=== PATIENT | male | born 1955 | race Caucasian/White ===

== ENCOUNTER 2017-08-26 09:24 | Emergency (ER) | payer OTHER ==
[~2017-08-26] VITALS: Ht 406.4 cm; Wt 140.6 kg
[~2017-08-26 09:24] MED LIST: ASACOL400 MG; ASACOL400 MG PO; ASPIRIN81 M1 PO; AZASAN50 MG PO; CIPRO500 MG/5 M PO; FLAGYL500 MG; FLEXERIL10 MG PO; HUMIRA40 MG/0.1 SC; LISINOPRIL40 MG PO; MOTRIN800 MG PO; NAPROXEN ER500 MG PO; NEXIUM40 MG PO; TENORMIN50 MG PO; TYLENOL ARTHRI650 MG PO; VICODIN 5/500 505 MG PO; VICODIN 500 MG-1 TAB PO
[2017-08-26] MEDS ORDERED: SULFAZINE500 MG PO (09:47)
== END 2017-08-26 12:27 | disposition home or self-care (01) ==
LOC: ED 09:24
DX: S80.11XA Contusion of right lower leg, initial encounter (principal); M25.551 Pain in right hip; Z88.0 Allergy status to penicillin; Z88.2 Allergy status to sulfonamides; Z79.82 Long term (current) use of aspirin; Z79.899 Other long term (current) drug therapy; W01.0XXA Fall on same level from slipping, tripping and stumbling without subsequent striking against object, initial encounter; Y93.89 Activity, other specified; Y92.812 Truck as the place of occurrence of the external cause; Y99.8 Other external cause status

== ENCOUNTER 2022-01-18 01:26 | Emergency (ER) | payer BC ==
[~2022-01-18] VITALS: Ht 167.6 cm; Wt 95.3 kg
[~2022-01-18 01:26] MED LIST changes: +SULFAZINE500 MG PO
[2022-01-18 02:12] LABS: BASO # 0.1 10*3/uL (0.0-0.1); BASO % 0.6 % (0.0-1.0); EOS # 0.8 10*3/uL (0.0-0.4); EOS % 6.4 % (1.0-4.0); HEMATOCRIT 40.5 % (42.0-52.0); LYMPH # 1.7 10*3/uL (1.3-4.4); LYMPH % 13.6 % (27.0-41.0); MEAN CELL VOLUME 93.1 fl (80.0-94.0); MEAN CORPUSCULAR HGB 29.2 pg (27.0-31.0); MEAN CORPUSCULAR HGB CONC 31.4 g/dl (33.0-37.0); MEAN PLATELET VOLUME 9.6 fl (9.6-12.3); MONO # 1.2 10*3/uL (0.1-1.0); MONO % 9.9 % (3.0-9.0); NEUT # 8.4 10*3/uL (2.3-7.9); NEUT % 68.9 % (47.0-73.0); PLATELET COUNT AUTOMATED 362 10*3/uL (130-400); RED BLOOD COUNT 4.35 10*6/uL (4.50-5.90); RED CELL DISTRI WIDTH 15.3 % (0-14.5); WHITE BLOOD COUNT 12.2 10*3/uL (4.8-10.8)
[2022-01-18 02:31] LABS: ALKALINE PHOSPHATASE 54 U/L (45-117); BUN 20 mg/dl (7-24); CHLORIDE 105 mmol/L (98-107); LIPASE 349 U/L (73-393); POTASSIUM 4.1 mmol/L (3.5-5.1); SGOT/AST 19 IU/L (3-35); SGPT/ALT 25 U/L (12-78); SODIUM 138 mmol/L (136-145); TOTAL PROTEIN 7.3 gm/dL (6.4-8.2)
[2022-01-18] MEDS ORDERED: FLOMAX0.4 MG PO (06:52)
[2022-01-18] MEDS ORDERED: NAPROSYN500 MG PO (06:52)
[2022-01-18 07:21] LABS: BILIRUBIN Negative (Negative); BLOOD Negative (Negative); CLARITY Cloudy (Clear); COLOR Yellow (Yellow); GLUCOSE Negative (Negative); KETONE Negative (Negative); PH 6.5 (4.5-8.0); SPECIFIC GRAVITY 1.015 (1.001-1.030)
[2022-01-18 07:22] LABS: LEUKO ESTERASE 3+ (Negative); NITRITE Positive (Negative); UROBILINOGEN 0.2 E.U./dl (0.0-1.0)
[2022-01-18 07:31] LABS: BACTERIA 4+; WBC TNTC wbc/hpf (0-5)
[2022-01-18] MEDS ORDERED: CIPRO500 MG PO (08:17)
== END 2022-01-18 08:10 | disposition left against medical advice (07) ==
LOC: ED 01:26
PROVIDERS: Emergency Medicine
DX: N13.2 Hydronephrosis with renal and ureteral calculous obstruction (principal); Z88.0 Allergy status to penicillin; Z88.2 Allergy status to sulfonamides; Z79.899 Other long term (current) drug therapy; Z79.82 Long term (current) use of aspirin; Z98.890 Other specified postprocedural states

== ENCOUNTER → 2023-09-06 | Outpatient (CLI) | payer BC ==
[~2023-09-06] MED LIST changes: +ACETAMINOPHEN325 M2 PO; +CIPRO500 MG PO; +Carafate1 GM PO; +DEXAMETHAS10 MG/1 M1 IV; +ENOXAPARIN40 MG/0.2 SC; +FLOMAX0.4 MG PO; +LEVOFLOXACIN500 MG PO; +LOMOTIL 2.5-0.1 EACH PO; +NAPROSYN500 MG PO; +OMEPRAZOLE40 MG PO; +SULFASALAZINE500 MG PO
== END | disposition home or self-care (01) ==
LOC: RAD 15:44
PROVIDERS: ATTEND Internal Medicine
DX: M16.11 Unilateral primary osteoarthritis, right hip (principal)

== ENCOUNTER → 2023-10-25 | Outpatient (CLI) | payer OTHER, BC | END | disposition home or self-care (01) | LOC: RAD 16:32 | PROVIDERS: ATTEND Family Medicine | DX: S70.01XA Contusion of right hip, initial encounter (principal); M16.11 Unilateral primary osteoarthritis, right hip; M25.551 Pain in right hip; X58.XXXA Exposure to other specified factors, initial encounter; Y93.89 Activity, other specified; Y92.89 Other specified places as the place of occurrence of the external cause; Y99.8 Other external cause status ==

== ENCOUNTER 2023-11-08 10:47 | Emergency (ER) | payer BC ==
[~2023-11-08] VITALS: Wt 136.1 kg
[2023-11-08 11:33] LABS: BASO # 0.1 10*3/uL (0.0-0.1); BASO % 0.8 % (0.0-1.0); EOS # 0.2 10*3/uL (0.0-0.4); EOS % 1.6 % (1.0-4.0); LYMPH # 1.6 10*3/uL (1.3-4.4); MEAN CORPUSCULAR HGB 23.4 pg (27.0-31.0); MEAN CORPUSCULAR HGB CONC 27.9 g/dl (33.0-37.0); MONO # 1.3 10*3/uL (0.1-1.0); MONO % 13.1 % (3.0-9.0); NEUT # 6.8 10*3/uL (2.3-7.9); PLATELET COUNT AUTOMATED 423 10*3/uL (130-400); RED BLOOD COUNT 3.93 10*6/uL (4.50-5.90); RED CELL DISTRI WIDTH 19.6 % (0-14.5)
[2023-11-08 11:44] LABS: ACT PARTIAL THROMBO TIME 26.7 SECONDS (20.0-32.1)
[2023-11-08 11:50] LABS: BUN 13 mg/dl (9-23); CHLORIDE 104 mmol/L (98-107); POTASSIUM 3.7 mmol/L (3.4-5.1)
[2023-11-08] MEDS ORDERED: VIBRAMYCIN100 MG PO (13:29)
[2023-11-08] MEDS ORDERED: CYCLOBENZAPRINE10 MG PO (13:29)
== END 2023-11-08 13:33 | disposition home or self-care (01) ==
LOC: ED 10:47
PROVIDERS: Nurse Practitioner
DX: S40.021A Contusion of right upper arm, initial encounter (principal); R07.81 Pleurodynia; L03.113 Cellulitis of right upper limb; M19.90 Unspecified osteoarthritis, unspecified site; J44.9 Chronic obstructive pulmonary disease, unspecified; K21.9 Gastro-esophageal reflux disease without esophagitis; I10 Essential (primary) hypertension; Z88.0 Allergy status to penicillin; Z88.2 Allergy status to sulfonamides; Z95.5 Presence of coronary angioplasty implant and graft; Z98.890 Other specified postprocedural states; W18.09XA Striking against other object with subsequent fall, initial encounter; Y93.89 Activity, other specified; Y92.89 Other specified places as the place of occurrence of the external cause; Y99.8 Other external cause status

== ENCOUNTER → 2023-12-07 | Outpatient (CLI) | payer OTHER ==
[~2023-12-07] MED LIST changes: +CYCLOBENZAPRINE10 MG PO; +VIBRAMYCIN100 MG PO
== END | disposition home or self-care (01) ==
LOC: MRI 12:31
PROVIDERS: ATTEND Family Medicine
DX: S70.01XA Contusion of right hip, initial encounter (principal); S76.011A Strain of muscle, fascia and tendon of right hip, initial encounter; M16.11 Unilateral primary osteoarthritis, right hip; M25.851 Other specified joint disorders, right hip; X58.XXXA Exposure to other specified factors, initial encounter; Y93.89 Activity, other specified; Y92.89 Other specified places as the place of occurrence of the external cause; Y99.8 Other external cause status